=== PATIENT | male | born 1975 | race Caucasian/White ===

== ENCOUNTER 2017-02-03 09:30 | Emergency (ER) | payer OTHER ==
--- NOTE | 2017-02-03 11:20 | ED NURSING NOTES ---
Clinical Report - Nurses [facility] [place] [address] 02/03/2017 9:36 Patient: SHORTY CARVAJAL TRIAGE Acuity: LEVEL 4. Chief Complaint: (Pt was bit by police dog). Alert. No acute distress. SEPSIS SCREEN: Sepsis Screen. Negative (no infection suspected/documented). --09:28 Sandra Gómez R.N. 09:22 02/03/17. BP: 120/77. HR: 98. RR: 20. O2 saturation: 100% on room air. Temp: 97.7 F (oral). --09:28 Sandra Gómez R.N. Weight: 72.5 kg stated. Height/Length: 70 inches Per Patient. BMI: 22.9. --09:26 Sandra Gómez R.N. Medications Cyclobenzaprine HCl ER Oral. --09:23 Sandra Gómez R.N. TraMADol HCl Oral. --09:24 Sandra Gmóez R.N. ClonazePAM Oral. --09:24 Sandra Gómez R.N. Hydrocodone-Acetaminophen Oral. --09:24 Sandra Gómez R.N. BuPROPion HCl Oral 100 mg, 2x a day. --10:50 Sandra Gómez R.N. Amoxicillin-Pot Clavulanate Oral 875 mg, 2x a day. --10:51 Sandra Gómez R.N. Bactrim Oral 1 tablet, 2x a day. --10:52 Sandra Gómez R.N. Medication/allergy information source: the patient. --09:28 Sandra Gómez R.N. Allergies Azithromycin. --09:27 Sandra Gómez R.N. Penicillins. --09:27 Sandra Gómez R.N. History Historian: police and patient. Arrived in police custody and accompanied by police. Location of injuries: right buttock. This occurred just prior to arrival. SOCIAL HX: Current every day heavy tobacco smoker (cigarette)- less than 1 pack per day. Occasional alcohol use. History of IV drug use: heroin, methamphetamines, marijuana. FALL RISK ASSESSMENT: Fall risk assessment completed. No fall risk identified. NUTRITIONAL RISK ASSESSMENT: The nutritional risk assessment revealed no deficiencies. FUNCTIONAL ASSESSMENT: Functional assessment: no impairments noted. LEARNING NEEDS ASSESSMENT: The learning needs assessment revealed no barriers. SKIN INTEGRITY ASSESSMENT: Skin integrity risk assessment completed. No skin integrity risk identified. --:28 Sandra Gómez R.N. Assessment GENERAL / NEURO / PSYCH: Alert. Patient appears calm and cooperative. RESPIRATORY: Respirations not labored. CVS: Capillary refill less than 2 seconds. SKIN: Skin is warm and dry. --: Sandra Gómez R.N. Interventions ID band on patient. To treatment room. Ambulatory. --: Sandra Gómez R.N. PHYSICAL ASSESSMENT 09:30 02/03/17. Ambulatory to room. GENERAL / NEURO / PSYCH: Alert. Appears in no acute distress. RESPIRATORY: Respirations not labored. EXTREMITIES: Extremities exhibit normal ROM. Neuro-vascular status intact to the extremity. BACK: Right buttock: tenderness, erythema and superficial laceration with controlled bleeding. --:30 Sandra Gómez R.N. NURSING PROGRESS NOTES 09:02/03/17. Patient gowned. Two patient identifiers checked. Call light placed in reach. Side rails up x 2. Bed placed in lowest position. Brakes of bed on. Patient ready for evaluation- chart flagged and ED physician notified. --:28 Sandra Gómez R.N. 09:48 02/03/2017 [id number] PERTUSSIS IM 0.5 mL given. (Lot#: [id number], expiration date: 08/19/2018, Dope House Operator Helper: sanofi pasteur). Given in the right deltoid. Allergies verified and confirmed 5 rights. Vaccine information statement provided to the patient (pt reports having had a dtap in the past without reaction). --09:56 Uche Guzman R.N. Wound cleansed with water and Hibiclens. Wound irrigated with 500 mL sterile NS using a high-pressure irrigation system; patient tolerated procedure well. --10:11 Alba Sewell ( Gave patient a sandwich and water. Patient still in room with officer.). --10:12 Alba Sewell 10:22 02/03/2017 [id number] PERTUSSIS IM Response: no adverse reaction. --11:10 Uche Guzman R.N. Applied clean dressing consisting of 4x4 gauze, following the application of antibiotic ointment (bacitracin). Secured with tape. --11:11 Alba Sewell. DISPOSITION / DISCHARGE 11:14 02/03/17. BP: 122/75 (regular adult cuff) taken on the left arm, via an automated monitor, while lying. HR: 68 (regular). RR: 20 (regular, unlabored and normal). O2 saturation: 100% on room air. Temp: 98.1 F. Pain level now: 05/21. --11:16 Alba Sewell Departure time: :Feb 03 2017. Condition at departure: improved and stable. Discharge instructions provided and reviewed with the patient. Reviewed medication(s) (Rx given to [employer] police coxswain). Reviewed wound care instructions. Patient verbalized understanding. Written instructions provided in Kyrgyz. The patient was discharged by the physician. He was discharged to police department facility and accompanied by a police escort. He left the Emergency Department ambulatory and via police department vehicle. --11:35 Sandra Gómez R.N. Locked/Released at 02/03/2017 11:36 by Sandra óGmez R.N.
--- NOTE | 2017-02-03 11:20 | ED NURSING NOTES ---
Clinical Report - Nurses [facility] [place] [address] 02/03/2017 9:36 Patient: SHORTY CARVAJAL TRIAGE Acuity: LEVEL 4. Chief Complaint: (Pt was bit by police dog). Alert. No acute distress. SEPSIS SCREEN: Sepsis Screen. Negative (no infection suspected/documented). --09:28 Sandra Gómez R.N. 09:22 02/03/17. BP: 120/77. HR: 98. RR: 20. O2 saturation: 100% on room air. Temp: 97.7 F (oral). --09:28 Sandra Gómez R.N. Weight: 72.5 kg stated. Height/Length: 70 inches Per Patient. BMI: 22.9. --09:26 Sandra Gómez R.N. Medications Cyclobenzaprine HCl ER Oral. --09:23 Sandra Gómez R.N. TraMADol HCl Oral. --09:24 Sandra Gómez R.N. ClonazePAM Oral. --09:24 Sandra Gómez R.N. Hydrocodone-Acetaminophen Oral. --09:24 Sandra Gómez R.N. BuPROPion HCl Oral 100 mg, 2x a day. --10:50 Sandra Gómez R.N. Amoxicillin-Pot Clavulanate Oral 875 mg, 2x a day. --10:51 Sandra Gómez R.N. Bactrim Oral 1 tablet, 2x a day. --10:52 Sandra Gómez R.N. Medication/allergy information source: the patient. --09:28 Sandra Gómez R.N. Allergies Azithromycin. --09:27 Sandra Gómez R.N. Penicillins. --09:27 Sandra Gómez R.N. History Historian: police and patient. Arrived in police custody and accompanied by police. Location of injuries: right buttock. This occurred just prior to arrival. SOCIAL HX: Current every day heavy tobacco smoker (cigarette)- less than 1 pack per day. Occasional alcohol use. History of IV drug use: heroin, methamphetamines, marijuana. FALL RISK ASSESSMENT: Fall risk assessment completed. No fall risk identified. NUTRITIONAL RISK ASSESSMENT: The nutritional risk assessment revealed no deficiencies. FUNCTIONAL ASSESSMENT: Functional assessment: no impairments noted. LEARNING NEEDS ASSESSMENT: The learning needs assessment revealed no barriers. SKIN INTEGRITY ASSESSMENT: Skin integrity risk assessment completed. No skin integrity risk identified. --:28 Sandra Gómez R.N. Assessment GENERAL / NEURO / PSYCH: Alert. Patient appears calm and cooperative. RESPIRATORY: Respirations not labored. CVS: Capillary refill less than 2 seconds. SKIN: Skin is warm and dry. --: Sandra Gómez R.N. Interventions ID band on patient. To treatment room. Ambulatory. --: Sandra Gómez R.N. PHYSICAL ASSESSMENT 09:30 02/03/17. Ambulatory to room. GENERAL / NEURO / PSYCH: Alert. Appears in no acute distress. RESPIRATORY: Respirations not labored. EXTREMITIES: Extremities exhibit normal ROM. Neuro-vascular status intact to the extremity. BACK: Right buttock: tenderness, erythema and superficial laceration with controlled bleeding. --:30 Sandra Gómez R.N. NURSING PROGRESS NOTES 09:02/03/17. Patient gowned. Two patient identifiers checked. Call light placed in reach. Side rails up x 2. Bed placed in lowest position. Brakes of bed on. Patient ready for evaluation- chart flagged and ED physician notified. --:28 Sandra Gómez R.N. 09:48 02/03/2017 [id number] PERTUSSIS IM 0.5 mL given. (Lot#: [id number], expiration date: 08/19/2018, Wall Covering Contractor: sanofi pasteur). Given in the right deltoid. Allergies verified and confirmed 5 rights. Vaccine information statement provided to the patient (pt reports having had a dtap in the past without reaction). --09:56 Uche Guzman R.N. Wound cleansed with water and Hibiclens. Wound irrigated with 500 mL sterile NS using a high-pressure irrigation system; patient tolerated procedure well. --10:11 Alba Sewell ( Gave patient a sandwich and water. Patient still in room with officer.). --10:12 Alba Sewell 10:22 02/03/2017 [id number] PERTUSSIS IM Response: no adverse reaction. --11:10 Uche Guzman R.N. Applied clean dressing consisting of 4x4 gauze, following the application of antibiotic ointment (bacitracin). Secured with tape. --11:11 Alba Sewell. DISPOSITION / DISCHARGE 11:14 02/03/17. BP: 122/75 (regular adult cuff) taken on the left arm, via an automated monitor, while lying. HR: 68 (regular). RR: 20 (regular, unlabored and normal). O2 saturation: 100% on room air. Temp: 98.1 F. Pain level now: 05/21. --11:16 Alba Sewell Departure time: :Feb 03 2017. Condition at departure: improved and stable. Discharge instructions provided and reviewed with the patient. Reviewed medication(s) (Rx given to highway patrol officer). Reviewed wound care instructions. Patient verbalized understanding. Written instructions provided in Hungarian. The patient was discharged by the physician. He was discharged to police department facility and accompanied by a police escort. He left the Emergency Department ambulatory and via police department vehicle. --11:35 Sandra Gómez R.N. Locked/Released at 02/03/2017 11:36 by Sandra Gómez R.N.
--- NOTE | 2017-02-03 11:20 | ED CLINICAL REPORT ---
Clinical Report - Physicians/Mid Levels [facility] [address] [place] [address] 02/03/2017 9:36 Patient: SHORTY CARVAJAL Time Seen: 09:33. Arrived- By private vehicle. Historian- patient. HISTORY OF PRESENT ILLNESS Chief Complaint: Clear to book, dog bite. This started just prior to arrival and is still present. It was abrupt in onset and has been constant. (patient was brought in by the [facility] Police Department. They've requested that he be medically cleared to book for senior living. Apparently at the time of his arrest a police dog was released as he was trying to flee. The dog apparently bit him on the right buttock and inflicted 3 long superficial lacerations and some minor abrasions. The patient also reports that he lost his medications yesterday and requests refills of these). REVIEW OF SYSTEMS No chills, fever, sweats, calf pain or chest pain. No cough, difficulty breathing, pedal edema, palpitations or abdominal pain. No constipation, diarrhea, nausea, vomiting or urinary problems. He reports that he is out of his "psychiatric" meds. [facility] [place] and obtained his medication list. PAST HISTORY He has been on Augmentin and trimethoprim sulfamethoxazole recently for cellulitis on his hands. Problems: Substance Abuse. Mental Illness. Medications: Bactrim Oral 1 tablet, 2x a day. Amoxicillin-Pot Clavulanate Oral 875 mg, 2x a day. BuPROPion HCl Oral 100 mg, 2x a day. Hydrocodone-Acetaminophen Oral. ClonazePAM Oral. TraMADol HCl Oral. Cyclobenzaprine HCl ER Oral. Allergies: Azithromycin. Penicillins. SOCIAL HISTORY Current every day light tobacco smoker (cigarette)- less than 1/2 a pack per day. Heavy alcohol use. History of drug use: heroin, methamphetamines, marijuana. He is homeless. FAMILY HISTORY Denies family medical history. ADDITIONAL NOTES The nursing notes have been reviewed. PHYSICAL EXAM Vital Signs: 02/03/2017 09:22 BP: 120/77. HR: 98. RR: 20. O2 saturation: 100%. Temp: 97.7 F. Have been reviewed. Appearance: Alert. Eyes: Pupils equal, round and reactive to light. ENT: Pharynx normal. Neck: Normal inspection. Neck supple. CVS: Normal heart rate and rhythm. Heart sounds normal. Respiratory: No respiratory distress. Breath sounds normal. Abdomen: No visible injury. Soft and nontender. Bowel sounds normal. No mass. Back: Normal inspection. Skin: The patient has multiple small superficial abrasions on the right forearm, right wrist, right hand, right leg, left forearm, left wrist, left hand and left leg. Multiple large-sized, superficial 3.0 cm lacerations to right buttock. SEE LACERATION PROCEDURE NOTE #1, #2 and #3. Extremities: Extremities exhibit normal ROM. No calf tenderness. No lower extremity edema. PROGRESS AND PROCEDURES Laceration Repair: Location: right buttock. Time-out completed immediately before the procedure. Length: 4 cm. Complexity: simple (local anesthesia used and sutured). Wound depth/shape- linear. Wound is clean. Local anesthesia provided using 2% lidocaine with epi. Prepped with Betadine. Wound explored, cleansed and examined to the base in bloodless field. Closure of superficial layer: interrupted 4-0 nylon (6 sutures). Post-procedure: he is stable and there are no complications. Bleeding is controlled. Tetanus immunization given. Laceration Repair #2: Time-out completed immediately before the procedure. Location: right buttock. Length: 4.0cm. Complexity: simple (local anesthesia used and sutured). Wound depth/shape- linear. Distal neuro/vascular/tendon status normal. Anesthesia provided using 2% lidocaine with epi. Prepped with Betadine. Closure of superficial layer: interrupted 4-0 (5 sutures). Post-procedure: he is stable and there are no complications. Bleeding is controlled. Tetanus immunization given. Laceration Repair #3: Time-out completed immediately before the procedure. Location: right buttock. Length: 4.0cm. Complexity: simple (local anesthesia used and sutured). Wound depth/shape- linear. Anesthesia provided using 2% lidocaine with epi. Prepped with Betadine. Wound explored and cleansed. Closure of superficial layer: interrupted 4-0 nylon (6 sutures). Post-procedure: he is stable and there are no complications. Bleeding is controlled. Dressing applied. Tetanus immunization given. Course of Care: Patient is stable. Patient/family counseled. Old medical records ordered. Old records unavailable. Disposition: Discharged to senior living. CLINICAL IMPRESSION Medication refill. Multiple superficial lacerations to the right hip. Chronic substance abuse. Multiple dog bites. INSTRUCTIONS Protect wound and keep wound area clean. Change dressing twice daily. You may wash wounds briefly, then dry. Apply neosporin twice daily. Sutures should be removed in ten days. ( Cleared to book for senior living). (seek substance abuse counseling with one of the organizations on the list you were provided.). Warnings: Further evaluation is necessary. TETANUS: You were given a tetanus shot during your visit. Make a note for future reference. GENERAL WARNINGS: Return or contact your physician immediately if your condition worsens or changes unexpectedly, if not improving as expected, or if other problems arise. Your Current Medications: STOP TAKING THE FOLLOWING MEDICATIONS: Amoxicillin-Pot Clavulanate Oral : 875 mg 2x a day. CONTINUE TAKING THE FOLLOWING MEDICATIONS: Bactrim Oral : 1 tablet 2x a day. BuPROPion HCl Oral : 100 mg 2x a day. Prescription Medications: Septra DS 800 mg / 160 mg: take 1 tablet orally every 12 hours for 7 days. Dispense fourteen (14). No refills. Substitution is permissible. Clindamycin 300 mg: take 1 capsule orally every 6 hours for 7 days. No refills. Bupropion 100 mg: Take 1 orally every 12 hours. Dispense thirty (30). No refills. Understanding of the discharge instructions verbalized by patient. Follow-up with: [facility], [facility], , [address] [place] [address] Follow up in ten days for suture removal. Call for the next available appointment. (Electronically signed by Bhavesh Mccoy MD 02/03/2017 15:02)
--- NOTE | 2017-02-03 11:20 | ED CLINICAL REPORT ---
Clinical Report - Physicians/Mid Levels [facility] [address] [place] [address] 02/03/2017 9:36 Patient: SHORTY CARVAJAL Time Seen: 09:33. Arrived- By private vehicle. Historian- patient. HISTORY OF PRESENT ILLNESS Chief Complaint: Clear to book, dog bite. This started just prior to arrival and is still present. It was abrupt in onset and has been constant. (patient was brought in by the [facility] Police Department. They've requested that he be medically cleared to book for residential. Apparently at the time of his arrest a police dog was released as he was trying to flee. The dog apparently bit him on the right buttock and inflicted 3 long superficial lacerations and some minor abrasions. The patient also reports that he lost his medications yesterday and requests refills of these). REVIEW OF SYSTEMS No chills, fever, sweats, calf pain or chest pain. No cough, difficulty breathing, pedal edema, palpitations or abdominal pain. No constipation, diarrhea, nausea, vomiting or urinary problems. He reports that he is out of his "psychiatric" meds. [facility] [place] and obtained his medication list. PAST HISTORY He has been on Augmentin and trimethoprim sulfamethoxazole recently for cellulitis on his hands. Problems: Substance Abuse. Mental Illness. Medications: Bactrim Oral 1 tablet, 2x a day. Amoxicillin-Pot Clavulanate Oral 875 mg, 2x a day. BuPROPion HCl Oral 100 mg, 2x a day. Hydrocodone-Acetaminophen Oral. ClonazePAM Oral. TraMADol HCl Oral. Cyclobenzaprine HCl ER Oral. Allergies: Azithromycin. Penicillins. SOCIAL HISTORY Current every day light tobacco smoker (cigarette)- less than 1/2 a pack per day. Heavy alcohol use. History of drug use: heroin, methamphetamines, marijuana. He is homeless. FAMILY HISTORY Denies family medical history. ADDITIONAL NOTES The nursing notes have been reviewed. PHYSICAL EXAM Vital Signs: 02/03/2017 09:22 BP: 120/77. HR: 98. RR: 20. O2 saturation: 100%. Temp: 97.7 F. Have been reviewed. Appearance: Alert. Eyes: Pupils equal, round and reactive to light. ENT: Pharynx normal. Neck: Normal inspection. Neck supple. CVS: Normal heart rate and rhythm. Heart sounds normal. Respiratory: No respiratory distress. Breath sounds normal. Abdomen: No visible injury. Soft and nontender. Bowel sounds normal. No mass. Back: Normal inspection. Skin: The patient has multiple small superficial abrasions on the right forearm, right wrist, right hand, right leg, left forearm, left wrist, left hand and left leg. Multiple large-sized, superficial 3.0 cm lacerations to right buttock. SEE LACERATION PROCEDURE NOTE #1, #2 and #3. Extremities: Extremities exhibit normal ROM. No calf tenderness. No lower extremity edema. PROGRESS AND PROCEDURES Laceration Repair: Location: right buttock. Time-out completed immediately before the procedure. Length: 4 cm. Complexity: simple (local anesthesia used and sutured). Wound depth/shape- linear. Wound is clean. Local anesthesia provided using 2% lidocaine with epi. Prepped with Betadine. Wound explored, cleansed and examined to the base in bloodless field. Closure of superficial layer: interrupted 4-0 nylon (6 sutures). Post-procedure: he is stable and there are no complications. Bleeding is controlled. Tetanus immunization given. Laceration Repair #2: Time-out completed immediately before the procedure. Location: right buttock. Length: 4.0cm. Complexity: simple (local anesthesia used and sutured). Wound depth/shape- linear. Distal neuro/vascular/tendon status normal. Anesthesia provided using 2% lidocaine with epi. Prepped with Betadine. Closure of superficial layer: interrupted 4-0 (5 sutures). Post-procedure: he is stable and there are no complications. Bleeding is controlled. Tetanus immunization given. Laceration Repair #3: Time-out completed immediately before the procedure. Location: right buttock. Length: 4.0cm. Complexity: simple (local anesthesia used and sutured). Wound depth/shape- linear. Anesthesia provided using 2% lidocaine with epi. Prepped with Betadine. Wound explored and cleansed. Closure of superficial layer: interrupted 4-0 nylon (6 sutures). Post-procedure: he is stable and there are no complications. Bleeding is controlled. Dressing applied. Tetanus immunization given. Course of Care: Patient is stable. Patient/family counseled. Old medical records ordered. Old records unavailable. Disposition: Discharged to residential. CLINICAL IMPRESSION Medication refill. Multiple superficial lacerations to the right hip. Chronic substance abuse. Multiple dog bites. INSTRUCTIONS Protect wound and keep wound area clean. Change dressing twice daily. You may wash wounds briefly, then dry. Apply neosporin twice daily. Sutures should be removed in ten days. ( Cleared to book for residential). (seek substance abuse counseling with one of the organizations on the list you were provided.). Warnings: Further evaluation is necessary. TETANUS: You were given a tetanus shot during your visit. Make a note for future reference. GENERAL WARNINGS: Return or contact your physician immediately if your condition worsens or changes unexpectedly, if not improving as expected, or if other problems arise. Your Current Medications: STOP TAKING THE FOLLOWING MEDICATIONS: Amoxicillin-Pot Clavulanate Oral : 875 mg 2x a day. CONTINUE TAKING THE FOLLOWING MEDICATIONS: Bactrim Oral : 1 tablet 2x a day. BuPROPion HCl Oral : 100 mg 2x a day. Prescription Medications: Septra DS 800 mg / 160 mg: take 1 tablet orally every 12 hours for 7 days. Dispense fourteen (14). No refills. Substitution is permissible. Clindamycin 300 mg: take 1 capsule orally every 6 hours for 7 days. No refills. Bupropion 100 mg: Take 1 orally every 12 hours. Dispense thirty (30). No refills. Understanding of the discharge instructions verbalized by patient. Follow-up with: [facility], [facility], , [address] [place] [address] Follow up in ten days for suture removal. Call for the next available appointment. (Electronically signed by Bhavesh Mccoy MD 02/03/2017 15:02)
--- NOTE | 2017-02-03 11:20 | ED ORDER SUMMARY ---
..... Patient: SHORTY CARVAJAL OrderSheet [facility] VisitID: [id number] [address] [place] [address] 41y, M Registration Date/Time: 02/03/2017 ORDER SHEET Weight: 72.5 kg (stated) Allergies: Azithromycin, Penicillins GENERAL ORDERS: MEDICATION ORDERS: Ztqqmun-Njystz-Ojsan Pertussis IM 0.5 mL (NOW, per protocol) (09:51 02/03/2017 Anjelica Harrison per protocol) (9:56 Micheal Lopez.Whit) IV FLUIDS: ORDER SHEET NOTES: [Electronically signed by Sandra Gómez R.N. (11:36 02/03/2017)] [Electronically signed by Bhavesh Mccoy MD (15:02 02/03/2017)] [Electronically locked/signed by Sandra Gómez R.N. (11:36 02/03/2017)]
--- NOTE | 2017-02-03 11:20 | ED ORDER SUMMARY ---
..... Patient: SHORTY CARVAJAL OrderSheet [facility] VisitID: [id number] [address] [place] [address] 41y, M Registration Date/Time: 02/03/2017 ORDER SHEET Weight: 72.5 kg (stated) Allergies: Azithromycin, Penicillins GENERAL ORDERS: MEDICATION ORDERS: Ioonagp-Wmbyld-Qxoqo Pertussis IM 0.5 mL (NOW, per protocol) (09:51 02/03/2017 Anjelica Harrison per protocol) (9:56 Micheal Lopez.Whit) IV FLUIDS: ORDER SHEET NOTES: [Electronically signed by Sandra Gómez R.N. (11:36 02/03/2017)] [Electronically signed by Bhavesh Mccoy MD (15:02 02/03/2017)] [Electronically locked/signed by Sandra Gómez R.N. (11:36 02/03/2017)]
--- NOTE | 2017-02-03 15:02 | ED MED RECONCILIATION SUMMARY ---
Patient: SHORTY CARVAJAL Medication Reconciliation Report [facility] VisitID: [id number] [address] [place] [address] 41y, M Registration Date/Time: 02/03/2017 Weight: 72.5 kg Height/Length: 70 in. BMI: 22.9 ALLERGIES: Azithromycin, Penicillins The patient's Home Medications are listed below: STOP TAKING THE FOLLOWING MEDICATIONS: Amoxicillin-Pot Clavulanate Oral 875 mg, 2x a day CONTINUE TAKING THE FOLLOWING MEDICATIONS: Bactrim Oral 1 tablet, 2x a day BuPROPion HCl Oral 100 mg, 2x a day THE FOLLOWING MEDICATIONS NEED TO BE RECONCILED: ClonazePAM Oral Cyclobenzaprine HCl ER Oral Hydrocodone-Acetaminophen Oral TraMADol HCl Oral The source(s) of the original Home Medication information: patient The following Medications were given to the patient in the Emergency Department: [id number] PERTUSSIS [IM] IM 0.5 mL, administered: 02/03/2017 9:48:00 AM The following Medications were prescribed to the patient: Septra DS 800 mg / 160 mg: take 1 tablet orally every 12 hours for 7 days. Dispense fourteen (14). No refills. Substitution is permissible. -- Bhavesh Mccoy MD Clindamycin 300 mg: take 1 capsule orally every 6 hours for 7 days. No refills. -- Bhavesh Mccoy MD Bupropion 100 mg: Take 1 orally every 12 hours. Dispense thirty (30). No refills. -- Bhavesh Mccoy MD
--- NOTE | 2017-02-03 15:02 | ED MAR SUMMARY ---
..... Medication Administration Record [facility] [address] [place] [address] Patient: SHORTY CARVAJAL Visit ID: [id number] 41y, M Weight: 72.5 kg Height/Length: 70 in BMI: 22.9 ALLERGIES: Penicillins, Azithromycin Given 09:48 02/03/2017 Uche Guzman RKeilyNKeily Medication Administered: [id number] PERTUSSIS [IM], Dose: 0.5 mL IM. Medication Ordered: [id number]-Ktaibm-Mqbzm Pertussis IM 0.5 mL (NOW, per protocol).
--- NOTE | 2017-02-03 15:02 | ED DISCHARGE INSTRUCTIONS ---
Patient: SHORTY CARVAJAL General Instructions [facility] VisitID: [id number] [place] [address] 41y, M Registration Date/Time: 02/03/2017 Medication refill. Multiple superficial lacerations to the right hip. Chronic substance abuse. Multiple dog bites. INSTRUCTIONS Protect wound and keep wound area clean. Change dressing twice daily. You may wash wounds briefly, then dry. Apply neosporin twice daily. Sutures should be removed in ten days. ( Cleared to book for [facility]). (seek substance abuse counseling with one of the organizations on the list you were provided.). Warnings: Further evaluation is necessary. TETANUS: You were given a tetanus shot during your visit. Make a note for future reference. GENERAL WARNINGS: Return or contact your physician immediately if your condition worsens or changes unexpectedly, if not improving as expected, or if other problems arise. Your Current Medications: STOP TAKING THE FOLLOWING MEDICATIONS: Amoxicillin-Pot Clavulanate Oral : 875 mg 2x a day. CONTINUE TAKING THE FOLLOWING MEDICATIONS: Bactrim Oral : 1 tablet 2x a day. BuPROPion HCl Oral : 100 mg 2x a day. Prescription Medications: Septra DS 800 mg / 160 mg: take 1 tablet orally every 12 hours for 7 days. Dispense fourteen (14). No refills. Substitution is permissible. Clindamycin 300 mg: take 1 capsule orally every 6 hours for 7 days. No refills. Bupropion 100 mg: Take 1 orally every 12 hours. Dispense thirty (30). No refills. Understanding of the discharge instructions verbalized by patient. Follow-up with: [facility], [facility], , [address] [place] [address] Follow up in ten days for suture removal. Call for the next available appointment. ADDITIONAL INFORMATION Laceration (All Closures) Alaceration is a cut through the skin. This will usually require stitches (sutures) or kathy if it is deep. Minor cuts may be treated with a surgical tape closure orskin glue. Home care The following guidelines will help you care for your laceration at home: Extremity, face, or trunk wounds Keep the wound clean and dry. If a bandage was applied and it becomes wet or dirty, replace it. Otherwise, leave it in place for the first 24 hours. If stitches or kathy were used, clean the wound daily. After removing the bandage, wash the area with soap and water. Use a wet cotton swab to loosen and remove any blood or crust that forms. The doctor may prescribe an antibiotic cream or ointment to prevent infection. Do not stop taking this medication until you have finished the prescribed course or the doctor tells you to stop. The doctor may also prescribe medications for pain. Follow the doctors instructions for taking these medications. You may remove the bandage to shower as usual after the first 24 hours, but do not soak the area in water (no swimming) until the stitches or kathy are removed. If surgical tape was used, keep the area clean and dry. If it becomes wet, blot it dry with a towel. If skin glue was used, do not scratch, rub, or pick at the adhesive film. Do not place tape directly over the film. Do not apply liquid, ointment, or creams to the wound while the film is in place. Do not clean the wound with peroxide and do not apply ointments. Avoid activities that cause heavy sweating until the film has fallen off. Protect the wound from prolonged exposure to sunlight or tanning lamps. You may shower as usual but do not soak the wound in water (no baths or swimming). The film will fall off by itself in 510 days. Scalp wounds During the first two days, you may carefully rinse your hair in the shower to remove blood, glass or dirt particles. After two days, you may shower and shampoo your hair normally. Do not soak your scalp in the tub or go swimming until the stitches or kathy have been removed. Talk with your doctor before applying any antibiotic ointment to the wound. Mouth wounds Eat soft foods to reduce pain. If the cut is inside of your mouth, clean by rinsing after each meal and at bedtime with a mixture of equal parts water and hydrogen peroxide (do not swallow!). Or, you can use a cotton swab to directly apply hydrogen peroxide onto the cut. Mouth wounds can be painful when eating. You may use an nuwh-mey-rkucvde local numbing solution for pain relief. If this is not available, you may use any numbing solution for teething babies. You may apply this directly to the sores with a cotton-tip swab or with your finger. Follow-up care Follow up with your health care provider. Most skin wounds heal within ten days. Mouth and facial wounds heal within five days. However, even with proper treatment, a wound infection may sometimes occur. Therefore, you should check the wound daily for signs of infection listed below. Stitches should be removed from the face within five days; stitches and kathy should be removed from other parts of the body within 714 days. If dissolving stitches were used in the mouth, these will fall out or dissolve without the need for removal. If tape closures were used, remove them yourself if they have not fallen off after 7 days. Ifskin glue was used, the film will fall off by itself in 510 days. When to seek medical care Get prompt medical attention if any of these occur: Bleeding not controlled by direct pressure Signs of infection, including increasing pain in the wound, increasing wound redness or swelling, or pus coming from the wound Fever of 100.4F (38C) or higher, or as directed by your health care provider Stitches or kathy come apart or fall out or surgical tape falls off before 7 days Wound edges re-open Drug Abuse Use and abuse of such drugs as marijuana, amphetamines (speed, crank), cocaine, heroin or prescription pain medicines (Vicodin, codeine), sedatives and sleeping pills (Valium, Klonopin), PCP, mescaline and LSD may lead to addiction or dependence. Once this occurs, you are at greater risk for any of the following: Craving for the drug and unable to stop using the drug even though you think you want to stop (psychological dependence) Drug withdrawal symptoms if you stop taking the drug (physical dependence) Loss of your job or your family Arrest, conviction and [facility] sentence for possession of an illegal substance or for driving under the influence of such a substance Accidental injuries to yourself or others while you are under the influence of the drug (in a car or at home). HIV infection (much greater risk if you use IV drugs) Other sexually transmitted diseases (herpes, chlamydia, gonorrhea and others) Severe and fatal infection of the heart valves (if you use IV drugs) Stroke, heart attack, hepatitis B or C, kidney failure from overdose Home Care: Admit you have a drug problem. Ask for help from your family and close friends. Seek professional help. This could be in the form of individual psychotherapy or counseling or an outpatient, inpatient, or residential drug treatment program. Join a self-help group for drug abuse. Avoid friends who abuse drugs themselves or tempt you to continue abusing drugs. Eat a balanced diet and begin a regular exercise program. Follow Up with your doctor or as advised by our staff. Contact one of the resources below for help. National [place] on Alcoholism and Drug Dependence www.ncadd.org 211-009-MCTH Narcotics Anonymous www.na.org 951-959-3802 National Alcohol and Substance Abuse Information Center (for referral to treatment programs) www.addictionFabrika Online 152-603-5165 Get Prompt Medical Attention if any of the following occur: Agitation, anxiety, unable to sleep Unintended weight loss (more than 10 to 15 pounds over 3 months) Seizure Chest pain Fever of 100.4F (38C) or higher, or as directed by your healthcare provider Excess drowsiness or inability to be awakened Shortness of breath Slow breathing under 8 breaths per minute Cough with colored sputum Redness, swelling or tenderness at an injection site Animal Bite, General If you have been bitten by an animal and the wound is deep enough to break the skin, an infection may occur. Therefore, watch for the warning signs listed below. If a cut (laceration) was present, the doctor may not close the wound completely. This is to allow fluid to drain in the event of an infection. Home Care: Watch the wound for signs of infection listed below which may begin within6 hours after the bite and progress rapidly. In certain types of bites, antibiotics may be prescribed. Begin taking these as soon as possible until they are all gone. Rabies Prevention If you live in an area where rabies occurs in the wild animals, if you were bitten by a dog, cat, skunk, raccoon, [place], coyote, bobcat, woodchuck, bat, or other meat-eating animal, there may be some risk to you of getting the rabies virus. If a healthy-looking pet dog or cat has bitten you, it should be kept in a secure area for the next 10 days to watch for signs of illness. (If the pet plastics worker wont cooperate with you, contact the animal control department.) If the dog or cat becomes ill or dies during that time, contact your [facility] animal control department at once so the animal may be tested for rabies. If the pet stays healthy for the next10 days, there is no danger of rabies in the animal or you. Pets fully vaccinated against rabies (2 shots) are at very low risk of infection; however, because human rabies is almost always fatal,any biting pet should be confined for10 days as an extra precaution. If astray pet bit you, contact the animal control department. They can provide information on capture, quarantine, and animal rabies testing. If you are unable to locate the animal that bit you in the next2 days, and if rabies exists in your region, you must be evaluated for the rabies vaccine series. Contact your doctor or return here promptly. All animal bites should be reported to the [facility] animal control department. If you were not given a form to fill out, you can report this yourself. Follow Up with your doctor or this facility as directed. Most skin wounds heal days. However, an infection may occur even with proper treatment. Check your wound every 6 hours for the first 2 days, then at least once a day for the next several days for the signs of infection listed below. Get Prompt Medical Attention if any of the following occur: Signs of infection: Spreading redness from the wound Increased pain or swelling Fever of 100.4F (38C) or higher, or as directed by your healthcare provider Colored fluid or pus draining from the wound Headache, confusion, strange behavior, or seizure (signs of a rabies infection) Laceration, Extremity (Sutures, Kathy, Or Tape) A laceration is a cut through the skin. This will usually require stitches (sutures) or kathy if it is deep. Minor cuts may be treated with surgical tape closures. Home care The following guidelines will help you care for your laceration at home: Keep the wound clean and dry. If a bandage was applied and it becomes wet or dirty, replace it. Otherwise, leave it in place for the first 24 hours, then change it once a day or as directed. If stitches or kathy were used, clean the wound daily: After removing the bandage, wash the area with soap and water. Use a wet cotton swab to loosen and remove any blood or crust that forms. After cleaning, keep the wound clean and dry. Talk with your doctor before applying any antibiotic ointment to the wound. Reapply the bandage. You may remove the bandage to shower as usual after the first 24 hours, but do not soak the area in water (no swimming) until the stitches or kathy are removed. If surgical tape closures were used, keep the area clean and dry. If it becomes wet, blot it dry with a towel. The doctor may prescribe an antibiotic cream or ointment to prevent infection. Do not stop taking this medication until you have finished the prescribed course or the doctor tells you to stop. The doctor may also prescribe medications for pain. Follow the doctors instructions for taking these medications. If you have chronic liver or kidney disease or ever had a stomach ulcer or GI bleeding, talk with your doctor before using these medicines. Follow-up care Follow up with your health care provider. Most skin wounds heal within ten days. However, an infection may sometimes occur despite proper treatment. Therefore, check the wound daily for the signs of infection listed below. Stitches and kathy should be removed within 714 days. If surgical tape closures were used, you may remove them after 10 days, if they have not fallen off by then. Notify your doctor if you notice persistent numbness or weakness in the injured extremity. (Note:A radiologist will review any X-rays that were taken. We will notify you of any new findings that may affect your care.) When to seek medical care Get prompt medical attention if any of these occur: Increasing pain in the wound Redness, swelling, or pus coming from the wound Fever of 100.4F (38C) or higher, or as directed by your health care provider If stitches or kathy come apart or fall out before your next appointment If the surgical tape closures fall off within seven days, or the wound edges re-open Bleeding not controlled by direct pressure Bandage Change If the bandage becomes wet or dirty, replace it. Otherwise, leave it in place for the first 24 hours. Then once a day: After removing the bandage, wash the area with soap and water. Use a wet cotton swab to loosen and remove any blood or crust that forms on the wound. After cleaning, apply a thin layer of antibiotic ointment or cream. Reapply the bandage. You may shower as usual after the first 24 hours. If the bandage is on an arm or leg, cover it with a plastic bag rubber banded at both ends before showering. No tub baths or swimming until the bandage is removed and the wound healed (at least 7 days). Diphtheria Toxoid Adsorbed, Pertussis Vaccine, Acellular (Adsorbed), Tetanus Toxoid, Adsorbed Suspension for injection What is this medicine? DIPHTHERIA and TETANUS TOXOIDS; PERTUSSIS VACCINE (dif THEER ee uh and TET n us TOK soids; per TUS iss vak SEEN) is used to prevent diphtheria, tetanus, and pertussis infections. How should I use this medicine? This vaccine is for injection into a muscle. It is given by a health senior resident care director. A copy of Vaccine Information Statements will be given before each vaccination. Read this sheet carefully each time. The sheet may change frequently. Talk to your costing manager regarding the use of this vaccine in children. While the DTP vaccine may be given to children ages 6 weeks to 7 years and the Tdap vaccine may be given to children at least 10 years old, precautions do apply. What side effects may I notice from receiving this medicine? Side effects that you should report to your doctor or health senior resident care director as soon as possible: allergic reactions like skin rash, itching or hives, swelling of the face, lips, or tongue breathing problems fever of 103 degrees F or more flu-like symptoms inconsolable crying infection pain, tingling, numbness in the hands or feet seizures swelling of arm or leg that was injected unusually weak or tired Side effects that usually do not require immediate medical attention (report these side effects to your doctor or health senior resident care director if they continue or are bothersome): fussy, irritable loss of appetite fever of 102 degrees F or less pain, tenderness, redness, swelling, or a 'knot' at site where injected vomiting What may interact with this medicine? immune globulin medicines that suppress your immune function like adalimumab, anakinra, infliximab medicines to treat cancer medicines that treat or prevent blood clots like warfarin, enoxaparin, and dalteparin steroid medicines like prednisone or cortisone What if I miss a dose? It is important not to miss your dose. Call your doctor or health senior resident care director if you are unable to keep an appointment. Where should I keep my medicine? This drug is given in a hospital or clinic and will not be stored at home. What should I tell my health care provider before I take this medicine? They need to know if you have any of these conditions: blood disorders like hemophilia fever or infection immune system problems neurologic disease seizures an unusual or allergic reaction to vaccines, thimerosal, latex, other medicines, foods, dyes, or preservatives or trying to get breast-feeding What should I watch for while using this medicine? See your health care provider for all shots of this vaccine as directed. To have protection from infection, you must have 3 shots of this vaccine plus boosters as needed. Tell your doctor right away if you have any serious or unusual side effects after getting this vaccine. Sulfamethoxazole, Trimethoprim Oral tablet What is this medicine? SULFAMETHOXAZOLE; TRIMETHOPRIM or SMX-TMP (suhl fuh meth OK karen zohl; trye METH oh prim) is a combination of a sulfonamide antibiotic and a second antibiotic, trimethoprim. It is used to treat or prevent certain kinds of bacterial infections. It will not work for colds, flu, or other viral infections. How should I use this medicine? Take this medicine by mouth with a full glass of water. Follow the directions on the prescription label. Take your medicine at regular intervals. Do not take it more often than directed. Do not skip doses or stop your medicine early. Talk to your costing manager regarding the use of this medicine in children. Special care may be needed. This medicine has been used in children as young as 2 months of age. What side effects may I notice from receiving this medicine? Side effects that you should report to your doctor or health senior resident care director as soon as possible: allergic reactions like skin rash or hives, swelling of the face, lips, or tongue breathing problems fever or chills, sore throat irregular heartbeat, chest pain joint or muscle pain pain or difficulty passing urine red pinpoint spots on skin redness, blistering, peeling or loosening of the skin, including inside the mouth unusual bleeding or bruising unusually weak or tired yellowing of the eyes or skin Side effects that usually do not require medical attention (report to your doctor or health senior resident care director if they continue or are bothersome): diarrhea dizziness headache loss of appetite nausea, vomiting nervousness What may interact with this medicine? Do not take this medicine with any of the following medications: aminobenzoate potassium dofetilide metronidazole This medicine may also interact with the following medications: NELL inhibitors like benazepril, enalapril, lisinopril, and ramipril cyclosporine digoxin diuretics indomethacin medicines for diabetes methenamine methotrexate phenytoin potassium supplements pyrimethamine sulfinpyrazone tricyclic antidepressants warfarin What if I miss a dose? If you miss a dose, take it as soon as you can. If it is almost time for your next dose, take only that dose. Do not take double or extra doses. Where should I keep my medicine? Keep out of the reach of children. Store at room temperature between 20 to 25 degrees C (68 to 77 degrees F). Protect from light. Throw away any unused medicine after the expiration date. What should I tell my health care provider before I take this medicine? They need to know if you have any of these conditions: anemia asthma being treated with anticonvulsants if you frequently drink alcohol containing drinks kidney disease liver disease low level of folic acid or eahiwai-[id number] dehydrogenase poor nutrition or malabsorption porphyria severe allergies thyroid disorder an unusual or allergic reaction to sulfamethoxazole, trimethoprim, sulfa drugs, other medicines, foods, dyes, or preservatives or trying to get breast-feeding What should I watch for while using this medicine? Tell your doctor or health senior resident care director if your symptoms do not improve. Drink several glasses of water a day to reduce the risk of kidney problems. Do not treat diarrhea with over the counter products. Contact your doctor if you have diarrhea that lasts more than 2 days or if it is severe and watery. This medicine can make you more sensitive to the sun. Keep out of the sun. If you cannot avoid being in the sun, wear protective clothing and use a sunscreen. Do not use sun lamps or tanning beds/booths. Clindamycin Hydrochloride Oral capsule What is this medicine? CLINDAMYCIN (KLIN da MYE sin) is a lincosamide antibiotic. It is used to treat certain kinds of bacterial infections. It will not work for colds, flu, or other viral infections. How should I use this medicine? Take this medicine by mouth with a full glass of water. Follow the directions on the prescription label. You can take this medicine with food or on an empty stomach. If the medicine upsets your stomach, take it with food. Take your medicine at regular intervals. Do not take your medicine more often than directed. Take all of your medicine as directed even if you think your are better. Do not skip doses or stop your medicine early. Talk to your costing manager regarding the use of this medicine in children. Special care may be needed. What side effects may I notice from receiving this medicine? Side effects that you should report to your doctor or health senior resident care director as soon as possible: allergic reactions like skin rash, itching or hives, swelling of the face, lips, or tongue dark urine pain on swallowing redness, blistering, peeling or loosening of the skin, including inside the mouth unusual bleeding or bruising unusually weak or tired yellowing of eyes or skin Side effects that usually do not require medical attention (report to your doctor or health senior resident care director if they continue or are bothersome): diarrhea itching in the rectal or genital area joint pain nausea, vomiting stomach pain What may interact with this medicine? chloramphenicol erythromycin kaolin products What if I miss a dose? If you miss a dose, take it as soon as you can. If it is almost time for your next dose, take only that dose. Do not take double or extra doses. Where should I keep my medicine? Keep out of the reach of children. Store at room temperature between 20 and 25 degrees C (68 and 77 degrees F). Throw away any unused medicine after the expiration date. What should I tell my health care provider before I take this medicine? They need to know if you have any of these conditions: kidney disease liver disease stomach problems like colitis an unusual or allergic reaction to clindamycin, lincomycin, or other medicines, foods, dyes like tartrazine or preservatives or trying to get breast-feeding What should I watch for while using this medicine? Tell your doctor or healthcare professional if your symptoms do not start to get better or if they get worse. Do not treat diarrhea with over the counter products. Contact your doctor if you have diarrhea that lasts more than 2 days or if it is severe and watery. You have been given the following additional information: Laceration, All Drug Abuse Animal Bite, General Laceration, Extrem (Suture, Staple, Or Tape) Dressing Change Diphtheria Toxoid Adsorbed, Pertussis Vaccine, Acellular (Adsorbed), Tetanus Toxoid, Adsorbed Suspension for injection Sulfamethoxazole, Trimethoprim Oral tablet Clindamycin Hydrochloride Oral capsule ( Cleared to book for [facility]). (Electronically signed by Bhavesh Mccoy MD 02/03/2017 15:02)
--- NOTE | 2017-02-03 15:02 | ED MED RECONCILIATION SUMMARY ---
Patient: SHORTY CARVAJAL Medication Reconciliation Report [facility] VisitID: [id number] [address] [place] [address] 41y, M Registration Date/Time: 02/03/2017 Weight: 72.5 kg Height/Length: 70 in. BMI: 22.9 ALLERGIES: Azithromycin, Penicillins The patient's Home Medications are listed below: STOP TAKING THE FOLLOWING MEDICATIONS: Amoxicillin-Pot Clavulanate Oral 875 mg, 2x a day CONTINUE TAKING THE FOLLOWING MEDICATIONS: Bactrim Oral 1 tablet, 2x a day BuPROPion HCl Oral 100 mg, 2x a day THE FOLLOWING MEDICATIONS NEED TO BE RECONCILED: ClonazePAM Oral Cyclobenzaprine HCl ER Oral Hydrocodone-Acetaminophen Oral TraMADol HCl Oral The source(s) of the original Home Medication information: patient The following Medications were given to the patient in the Emergency Department: [id number] PERTUSSIS [IM] IM 0.5 mL, administered: 02/03/2017 9:48:00 AM The following Medications were prescribed to the patient: Septra DS 800 mg / 160 mg: take 1 tablet orally every 12 hours for 7 days. Dispense fourteen (14). No refills. Substitution is permissible. -- Bhavesh Mccoy MD Clindamycin 300 mg: take 1 capsule orally every 6 hours for 7 days. No refills. -- Bhavesh Mccoy MD Bupropion 100 mg: Take 1 orally every 12 hours. Dispense thirty (30). No refills. -- Bhavesh Mccoy MD
--- NOTE | 2017-02-03 15:02 | ED DISCHARGE INSTRUCTIONS ---
Patient: SHORTY CARVAJAL General Instructions [facility] VisitID: [id number] [place] [address] 41y, M Registration Date/Time: 02/03/2017 Medication refill. Multiple superficial lacerations to the right hip. Chronic substance abuse. Multiple dog bites. INSTRUCTIONS Protect wound and keep wound area clean. Change dressing twice daily. You may wash wounds briefly, then dry. Apply neosporin twice daily. Sutures should be removed in ten days. ( Cleared to book for prison). (seek substance abuse counseling with one of the organizations on the list you were provided.). Warnings: Further evaluation is necessary. TETANUS: You were given a tetanus shot during your visit. Make a note for future reference. GENERAL WARNINGS: Return or contact your physician immediately if your condition worsens or changes unexpectedly, if not improving as expected, or if other problems arise. Your Current Medications: STOP TAKING THE FOLLOWING MEDICATIONS: Amoxicillin-Pot Clavulanate Oral : 875 mg 2x a day. CONTINUE TAKING THE FOLLOWING MEDICATIONS: Bactrim Oral : 1 tablet 2x a day. BuPROPion HCl Oral : 100 mg 2x a day. Prescription Medications: Septra DS 800 mg / 160 mg: take 1 tablet orally every 12 hours for 7 days. Dispense fourteen (14). No refills. Substitution is permissible. Clindamycin 300 mg: take 1 capsule orally every 6 hours for 7 days. No refills. Bupropion 100 mg: Take 1 orally every 12 hours. Dispense thirty (30). No refills. Understanding of the discharge instructions verbalized by patient. Follow-up with: [facility], [facility], , [address] [place] [address] Follow up in ten days for suture removal. Call for the next available appointment. ADDITIONAL INFORMATION Laceration (All Closures) Alaceration is a cut through the skin. This will usually require stitches (sutures) or kathy if it is deep. Minor cuts may be treated with a surgical tape closure orskin glue. Home care The following guidelines will help you care for your laceration at home: Extremity, face, or trunk wounds Keep the wound clean and dry. If a bandage was applied and it becomes wet or dirty, replace it. Otherwise, leave it in place for the first 24 hours. If stitches or kathy were used, clean the wound daily. After removing the bandage, wash the area with soap and water. Use a wet cotton swab to loosen and remove any blood or crust that forms. The doctor may prescribe an antibiotic cream or ointment to prevent infection. Do not stop taking this medication until you have finished the prescribed course or the doctor tells you to stop. The doctor may also prescribe medications for pain. Follow the doctors instructions for taking these medications. You may remove the bandage to shower as usual after the first 24 hours, but do not soak the area in water (no swimming) until the stitches or kathy are removed. If surgical tape was used, keep the area clean and dry. If it becomes wet, blot it dry with a towel. If skin glue was used, do not scratch, rub, or pick at the adhesive film. Do not place tape directly over the film. Do not apply liquid, ointment, or creams to the wound while the film is in place. Do not clean the wound with peroxide and do not apply ointments. Avoid activities that cause heavy sweating until the film has fallen off. Protect the wound from prolonged exposure to sunlight or tanning lamps. You may shower as usual but do not soak the wound in water (no baths or swimming). The film will fall off by itself in 510 days. Scalp wounds During the first two days, you may carefully rinse your hair in the shower to remove blood, glass or dirt particles. After two days, you may shower and shampoo your hair normally. Do not soak your scalp in the tub or go swimming until the stitches or kathy have been removed. Talk with your doctor before applying any antibiotic ointment to the wound. Mouth wounds Eat soft foods to reduce pain. If the cut is inside of your mouth, clean by rinsing after each meal and at bedtime with a mixture of equal parts water and hydrogen peroxide (do not swallow!). Or, you can use a cotton swab to directly apply hydrogen peroxide onto the cut. Mouth wounds can be painful when eating. You may use an [id number] local numbing solution for pain relief. If this is not available, you may use any numbing solution for teething babies. You may apply this directly to the sores with a cotton-tip swab or with your finger. Follow-up care Follow up with your health care provider. Most skin wounds heal within ten days. Mouth and facial wounds heal within five days. However, even with proper treatment, a wound infection may sometimes occur. Therefore, you should check the wound daily for signs of infection listed below. Stitches should be removed from the face within five days; stitches and kathy should be removed from other parts of the body within 714 days. If dissolving stitches were used in the mouth, these will fall out or dissolve without the need for removal. If tape closures were used, remove them yourself if they have not fallen off after 7 days. Ifskin glue was used, the film will fall off by itself in 510 days. When to seek medical care Get prompt medical attention if any of these occur: Bleeding not controlled by direct pressure Signs of infection, including increasing pain in the wound, increasing wound redness or swelling, or pus coming from the wound Fever of 100.4F (38C) or higher, or as directed by your health care provider Stitches or kathy come apart or fall out or surgical tape falls off before 7 days Wound edges re-open Drug Abuse Use and abuse of such drugs as marijuana, amphetamines (speed, crank), cocaine, heroin or prescription pain medicines (Vicodin, codeine), sedatives and sleeping pills (Valium, Klonopin), PCP, mescaline and LSD may lead to addiction or dependence. Once this occurs, you are at greater risk for any of the following: Craving for the drug and unable to stop using the drug even though you think you want to stop (psychological dependence) Drug withdrawal symptoms if you stop taking the drug (physical dependence) Loss of your job or your family Arrest, conviction and prison sentence for possession of an illegal substance or for driving under the influence of such a substance Accidental injuries to yourself or others while you are under the influence of the drug (in a car or at home). HIV infection (much greater risk if you use IV drugs) Other sexually transmitted diseases (herpes, chlamydia, gonorrhea and others) Severe and fatal infection of the heart valves (if you use IV drugs) Stroke, heart attack, hepatitis B or C, kidney failure from overdose Home Care: Admit you have a drug problem. Ask for help from your family and close friends. Seek professional help. This could be in the form of individual psychotherapy or counseling or an outpatient, inpatient, or residential drug treatment program. Join a self-help group for drug abuse. Avoid friends who abuse drugs themselves or tempt you to continue abusing drugs. Eat a balanced diet and begin a regular exercise program. Follow Up with your doctor or as advised by our staff. Contact one of the resources below for help. National [place] on Alcoholism and Drug Dependence www.ncadd.org 473-958-DTZX Narcotics Anonymous www.na.org 072-544-7532 National Alcohol and Substance Abuse Information Center (for referral to treatment programs) www.addictionINFIMET 657-561-7943 Get Prompt Medical Attention if any of the following occur: Agitation, anxiety, unable to sleep Unintended weight loss (more than 10 to 15 pounds over 3 months) Seizure Chest pain Fever of 100.4F (38C) or higher, or as directed by your healthcare provider Excess drowsiness or inability to be awakened Shortness of breath Slow breathing under 8 breaths per minute Cough with colored sputum Redness, swelling or tenderness at an injection site Animal Bite, General If you have been bitten by an animal and the wound is deep enough to break the skin, an infection may occur. Therefore, watch for the warning signs listed below. If a cut (laceration) was present, the doctor may not close the wound completely. This is to allow fluid to drain in the event of an infection. Home Care: Watch the wound for signs of infection listed below which may begin within6 hours after the bite and progress rapidly. In certain types of bites, antibiotics may be prescribed. Begin taking these as soon as possible until they are all gone. Rabies Prevention If you live in an area where rabies occurs in the wild animals, if you were bitten by a dog, cat, skunk, raccoon, [place], coyote, bobcat, woodchuck, bat, or other meat-eating animal, there may be some risk to you of getting the rabies virus. If a healthy-looking pet dog or cat has bitten you, it should be kept in a secure area for the next 10 days to watch for signs of illness. (If the pet community center worker wont cooperate with you, contact the animal control department.) If the dog or cat becomes ill or dies during that time, contact your [facility] animal control department at once so the animal may be tested for rabies. If the pet stays healthy for the next10 days, there is no danger of rabies in the animal or you. Pets fully vaccinated against rabies (2 shots) are at very low risk of infection; however, because human rabies is almost always fatal,any biting pet should be confined for10 days as an extra precaution. If astray pet bit you, contact the animal control department. They can provide information on capture, quarantine, and animal rabies testing. If you are unable to locate the animal that bit you in the next2 days, and if rabies exists in your region, you must be evaluated for the rabies vaccine series. Contact your doctor or return here promptly. All animal bites should be reported to the [facility] animal control department. If you were not given a form to fill out, you can report this yourself. Follow Up with your doctor or this facility as directed. Most skin wounds heal [id number] days. However, an infection may occur even with proper treatment. Check your wound every 6 hours for the first 2 days, then at least once a day for the next several days for the signs of infection listed below. Get Prompt Medical Attention if any of the following occur: Signs of infection: Spreading redness from the wound Increased pain or swelling Fever of 100.4F (38C) or higher, or as directed by your healthcare provider Colored fluid or pus draining from the wound Headache, confusion, strange behavior, or seizure (signs of a rabies infection) Laceration, Extremity (Sutures, Kathy, Or Tape) A laceration is a cut through the skin. This will usually require stitches (sutures) or kathy if it is deep. Minor cuts may be treated with surgical tape closures. Home care The following guidelines will help you care for your laceration at home: Keep the wound clean and dry. If a bandage was applied and it becomes wet or dirty, replace it. Otherwise, leave it in place for the first 24 hours, then change it once a day or as directed. If stitches or kathy were used, clean the wound daily: After removing the bandage, wash the area with soap and water. Use a wet cotton swab to loosen and remove any blood or crust that forms. After cleaning, keep the wound clean and dry. Talk with your doctor before applying any antibiotic ointment to the wound. Reapply the bandage. You may remove the bandage to shower as usual after the first 24 hours, but do not soak the area in water (no swimming) until the stitches or kathy are removed. If surgical tape closures were used, keep the area clean and dry. If it becomes wet, blot it dry with a towel. The doctor may prescribe an antibiotic cream or ointment to prevent infection. Do not stop taking this medication until you have finished the prescribed course or the doctor tells you to stop. The doctor may also prescribe medications for pain. Follow the doctors instructions for taking these medications. If you have chronic liver or kidney disease or ever had a stomach ulcer or GI bleeding, talk with your doctor before using these medicines. Follow-up care Follow up with your health care provider. Most skin wounds heal within ten days. However, an infection may sometimes occur despite proper treatment. Therefore, check the wound daily for the signs of infection listed below. Stitches and kathy should be removed within 714 days. If surgical tape closures were used, you may remove them after 10 days, if they have not fallen off by then. Notify your doctor if you notice persistent numbness or weakness in the injured extremity. (Note:A radiologist will review any X-rays that were taken. We will notify you of any new findings that may affect your care.) When to seek medical care Get prompt medical attention if any of these occur: Increasing pain in the wound Redness, swelling, or pus coming from the wound Fever of 100.4F (38C) or higher, or as directed by your health care provider If stitches or kathy come apart or fall out before your next appointment If the surgical tape closures fall off within seven days, or the wound edges re-open Bleeding not controlled by direct pressure Bandage Change If the bandage becomes wet or dirty, replace it. Otherwise, leave it in place for the first 24 hours. Then once a day: After removing the bandage, wash the area with soap and water. Use a wet cotton swab to loosen and remove any blood or crust that forms on the wound. After cleaning, apply a thin layer of antibiotic ointment or cream. Reapply the bandage. You may shower as usual after the first 24 hours. If the bandage is on an arm or leg, cover it with a plastic bag rubber banded at both ends before showering. No tub baths or swimming until the bandage is removed and the wound healed (at least 7 days). Diphtheria Toxoid Adsorbed, Pertussis Vaccine, Acellular (Adsorbed), Tetanus Toxoid, Adsorbed Suspension for injection What is this medicine? DIPHTHERIA and TETANUS TOXOIDS; PERTUSSIS VACCINE (dif THEER ee uh and TET n us TOK soids; per TUS iss vak SEEN) is used to prevent diphtheria, tetanus, and pertussis infections. How should I use this medicine? This vaccine is for injection into a muscle. It is given by a health career development consultant. A copy of Vaccine Information Statements will be given before each vaccination. Read this sheet carefully each time. The sheet may change frequently. Talk to your tube operator regarding the use of this vaccine in children. While the DTP vaccine may be given to children ages 6 weeks to 7 years and the Tdap vaccine may be given to children at least 10 years old, precautions do apply. What side effects may I notice from receiving this medicine? Side effects that you should report to your doctor or health career development consultant as soon as possible: allergic reactions like skin rash, itching or hives, swelling of the face, lips, or tongue breathing problems fever of 103 degrees F or more flu-like symptoms inconsolable crying infection pain, tingling, numbness in the hands or feet seizures swelling of arm or leg that was injected unusually weak or tired Side effects that usually do not require immediate medical attention (report these side effects to your doctor or health career development consultant if they continue or are bothersome): fussy, irritable loss of appetite fever of 102 degrees F or less pain, tenderness, redness, swelling, or a 'knot' at site where injected vomiting What may interact with this medicine? immune globulin medicines that suppress your immune function like adalimumab, anakinra, infliximab medicines to treat cancer medicines that treat or prevent blood clots like warfarin, enoxaparin, and dalteparin steroid medicines like prednisone or cortisone What if I miss a dose? It is important not to miss your dose. Call your doctor or health career development consultant if you are unable to keep an appointment. Where should I keep my medicine? This drug is given in a hospital or clinic and will not be stored at home. What should I tell my health care provider before I take this medicine? They need to know if you have any of these conditions: blood disorders like hemophilia fever or infection immune system problems neurologic disease seizures an unusual or allergic reaction to vaccines, thimerosal, latex, other medicines, foods, dyes, or preservatives or trying to get breast-feeding What should I watch for while using this medicine? See your health care provider for all shots of this vaccine as directed. To have protection from infection, you must have 3 shots of this vaccine plus boosters as needed. Tell your doctor right away if you have any serious or unusual side effects after getting this vaccine. Sulfamethoxazole, Trimethoprim Oral tablet What is this medicine? SULFAMETHOXAZOLE; TRIMETHOPRIM or SMX-TMP (suhl fuh meth OK karen zohl; trye METH oh prim) is a combination of a sulfonamide antibiotic and a second antibiotic, trimethoprim. It is used to treat or prevent certain kinds of bacterial infections. It will not work for colds, flu, or other viral infections. How should I use this medicine? Take this medicine by mouth with a full glass of water. Follow the directions on the prescription label. Take your medicine at regular intervals. Do not take it more often than directed. Do not skip doses or stop your medicine early. Talk to your tube operator regarding the use of this medicine in children. Special care may be needed. This medicine has been used in children as young as 2 months of age. What side effects may I notice from receiving this medicine? Side effects that you should report to your doctor or health career development consultant as soon as possible: allergic reactions like skin rash or hives, swelling of the face, lips, or tongue breathing problems fever or chills, sore throat irregular heartbeat, chest pain joint or muscle pain pain or difficulty passing urine red pinpoint spots on skin redness, blistering, peeling or loosening of the skin, including inside the mouth unusual bleeding or bruising unusually weak or tired yellowing of the eyes or skin Side effects that usually do not require medical attention (report to your doctor or health career development consultant if they continue or are bothersome): diarrhea dizziness headache loss of appetite nausea, vomiting nervousness What may interact with this medicine? Do not take this medicine with any of the following medications: aminobenzoate potassium dofetilide metronidazole This medicine may also interact with the following medications: NLEL inhibitors like benazepril, enalapril, lisinopril, and ramipril cyclosporine digoxin diuretics indomethacin medicines for diabetes methenamine methotrexate phenytoin potassium supplements pyrimethamine sulfinpyrazone tricyclic antidepressants warfarin What if I miss a dose? If you miss a dose, take it as soon as you can. If it is almost time for your next dose, take only that dose. Do not take double or extra doses. Where should I keep my medicine? Keep out of the reach of children. Store at room temperature between 20 to 25 degrees C (68 to 77 degrees F). Protect from light. Throw away any unused medicine after the expiration date. What should I tell my health care provider before I take this medicine? They need to know if you have any of these conditions: anemia asthma being treated with anticonvulsants if you frequently drink alcohol containing drinks kidney disease liver disease low level of folic acid or [id number] dehydrogenase poor nutrition or malabsorption porphyria severe allergies thyroid disorder an unusual or allergic reaction to sulfamethoxazole, trimethoprim, sulfa drugs, other medicines, foods, dyes, or preservatives or trying to get breast-feeding What should I watch for while using this medicine? Tell your doctor or health career development consultant if your symptoms do not improve. Drink several glasses of water a day to reduce the risk of kidney problems. Do not treat diarrhea with over the counter products. Contact your doctor if you have diarrhea that lasts more than 2 days or if it is severe and watery. This medicine can make you more sensitive to the sun. Keep out of the sun. If you cannot avoid being in the sun, wear protective clothing and use a sunscreen. Do not use sun lamps or tanning beds/booths. Clindamycin Hydrochloride Oral capsule What is this medicine? CLINDAMYCIN (KLIN da MYE sin) is a lincosamide antibiotic. It is used to treat certain kinds of bacterial infections. It will not work for colds, flu, or other viral infections. How should I use this medicine? Take this medicine by mouth with a full glass of water. Follow the directions on the prescription label. You can take this medicine with food or on an empty stomach. If the medicine upsets your stomach, take it with food. Take your medicine at regular intervals. Do not take your medicine more often than directed. Take all of your medicine as directed even if you think your are better. Do not skip doses or stop your medicine early. Talk to your tube operator regarding the use of this medicine in children. Special care may be needed. What side effects may I notice from receiving this medicine? Side effects that you should report to your doctor or health career development consultant as soon as possible: allergic reactions like skin rash, itching or hives, swelling of the face, lips, or tongue dark urine pain on swallowing redness, blistering, peeling or loosening of the skin, including inside the mouth unusual bleeding or bruising unusually weak or tired yellowing of eyes or skin Side effects that usually do not require medical attention (report to your doctor or health career development consultant if they continue or are bothersome): diarrhea itching in the rectal or genital area joint pain nausea, vomiting stomach pain What may interact with this medicine? chloramphenicol erythromycin kaolin products What if I miss a dose? If you miss a dose, take it as soon as you can. If it is almost time for your next dose, take only that dose. Do not take double or extra doses. Where should I keep my medicine? Keep out of the reach of children. Store at room temperature between 20 and 25 degrees C (68 and 77 degrees F). Throw away any unused medicine after the expiration date. What should I tell my health care provider before I take this medicine? They need to know if you have any of these conditions: kidney disease liver disease stomach problems like colitis an unusual or allergic reaction to clindamycin, lincomycin, or other medicines, foods, dyes like tartrazine or preservatives or trying to get breast-feeding What should I watch for while using this medicine? Tell your doctor or healthcare professional if your symptoms do not start to get better or if they get worse. Do not treat diarrhea with over the counter products. Contact your doctor if you have diarrhea that lasts more than 2 days or if it is severe and watery. You have been given the following additional information: Laceration, All Drug Abuse Animal Bite, General Laceration, Extrem (Suture, Staple, Or Tape) Dressing Change Diphtheria Toxoid Adsorbed, Pertussis Vaccine, Acellular (Adsorbed), Tetanus Toxoid, Adsorbed Suspension for injection Sulfamethoxazole, Trimethoprim Oral tablet Clindamycin Hydrochloride Oral capsule ( Cleared to book for prison). (Electronically signed by Bhavesh Mccoy MD 02/03/2017 15:02)
--- NOTE | 2017-02-03 15:02 | ED MAR SUMMARY ---
..... Medication Administration Record [facility] [address] [place] [address] Patient: SHORTY CARVAJAL Visit ID: [id number] 41y, M Weight: 72.5 kg Height/Length: 70 in BMI: 22.9 ALLERGIES: Penicillins, Azithromycin Given 09:48 02/03/2017 Uche Guzman RKeilyNKeily Medication Administered: [id number] PERTUSSIS [IM], Dose: 0.5 mL IM. Medication Ordered: Vuzmhds-[id number]-Rzzoe Pertussis IM 0.5 mL (NOW, per protocol).
== END 2017-02-03 11:25 ==
LOC: ED SRH 09:30
DX: S31.815A Open bite of right buttock, initial encounter (principal); Z02.89 Encounter for other administrative examinations; S71.011A Laceration without foreign body, right hip, initial encounter; F19.10 Other psychoactive substance abuse, uncomplicated; W54.0XXA Bitten by dog, initial encounter; Y93.02 Activity, running; Y99.8 Other external cause status; Y92.9 Unspecified place or not applicable; Z23 Encounter for immunization; Z76.0 Encounter for issue of repeat prescription